=== PATIENT | female | born 1980 | race African-American/Black ===

== ENCOUNTER 2017-10-20 01:05 | Emergency (ER) | payer OTHER ==
[~2017-10-20] VITALS: Ht 157.5 cm; Wt 86.0 kg
[2017-10-20] MEDS ORDERED: NORCO 5/3251 TABLET PO (01:58)
[2017-10-20 02:46] VITALS: BP 114/71
== END 2017-10-20 02:47 | disposition home or self-care (01) ==
LOC: EME 01:05
PROC: 2W3RX1Z Immobilization of Left Lower Leg using Splint (ICD-10-PCS; principal; 2017-10-20)
DX: S82.842A Displaced bimalleolar fracture of left lower leg, initial encounter for closed fracture (principal); W00.0XXA Fall on same level due to ice and snow, initial encounter; Y99.0 Civilian activity done for income or pay
CPT/HCPCS: 73610; 99281; 99284